=== PATIENT | male | born 1985 | race Two or more races ===

== ENCOUNTER 2024-02-26 22:04 | Emergency (ER) | payer SELFPAY ==
--- NOTE | 2024-02-26 22:00 | ECG_ITS ---
APPROVED REPORT Exam: Resting ECG HR:140 bpm ECG Measurements Heart Rate 140 AXES FL 128 P 58 QRSd 94 QRS 80 QT 327 T 36 QTc 408 Conclusion SINUS TACHYCARDIA, POSSIBLE ATRIAL FLUTTER NONSPECIFIC T-WAVE ABNORMALITY ABNORMAL RHYTHM ECG UNCONFIRMED REPORT Electronically signed by : Yohan Staton, 02/27/2024 23:11:34
[2024-02-26 22:04] VITALS: BP 186/93; PULSE 119; RESP 20; TEMP 36.8; O2SAT 99; BMI 28.1
[2024-02-26 22:10] VITALS: BP 129/66; PULSE 72; RESP 18; O2SAT 92
[2024-02-26 22:30] VITALS: BP 142/80; RESP 13
--- NOTE | 2024-02-26 22:34 | PC.NURSE ---
fingerstick 162 @ [id number]
[2024-02-26 23:00] VITALS: BP 150/87; RESP 19
--- NOTE | 2024-02-26 23:08 | HMH.EDGENADL ---
Discharge Plan Disposition Patient Disposition: Home, Self-Care Referrals Follow up/Referrals: Provider,Referral, [Primary Care Provider] - See instructions Activity Restrictions/Add. Instructions Additional Instructions/Restrictions: Please follow-up with your primary care provider. Please return to the emergency department if you develop any new or worsening symptoms or become concerned for your health. Clinical Impressions Clinical Impression: Syncope, Generalized weakness, Alcoholic intoxication, Acute hypokalemia Instructions Patient Instructions: DI for Altered Mental Status Print Language Print Language: Pashto Discharge ED Provider: Guicho Wilkinson General Adult HPI <Darin Staton MD - Last Filed: 02/26/24 23:15> General Chief complaint: Altered Mental Status Stated complaint: unresponsive Time Seen by Provider: 02/26/24 23:07 Mode of Arrival: EMS Source of Information: EMS Limitations: Language Barrier Description of Symptoms (Recalled from ER Triage Doc. by RN): Pt arrived via ems from home, was found by family passed out on stairs with beer in hand. pt is not alert, however arousable, also uncooperative with ems and staff. No health history discovered. Pashto int. used History of Present Illness HPI narrative: Patient is a 39-year-old with no past medical history who presents today after being found down by his son. History is obtained from the patient from his son and his colleagues at the bedside all through an boring machine operator double end. His colleagues states that they were having a libertarian for a coworker they were drinking some alcohol he was dancing and singing when his son found him on the second floor passed out and call for help EMS was called. The patient is awake answer questions to me right now and states he only has generalized weakness and denies any other complaints. Claims that he only had 2 beers. Denies any other drug use denies any other symptoms right now denies any chest pain shortness of breath or history of cardiopulmonary abnormalities is never passed out in the past. Related Data Allergies Allergy/AdvReac Type Severity Reaction Status Date / Time No Known Allergies Allergy Verified 02/26/24 22:11 PFSH <Darin Staton MD - Last Filed: 02/26/24 23:15> PFS Disclaimer: The information contained in this section may have been updated after the patient was seen, as this information can be updated by other users. Social History (Updated 02/26/24 @ 23:15 by Darin Staton MD) Smoking Status: Never smoker alcohol intake: never current occupational status: other Travel in the last 8 weeks: None <Darin Staton MD - Last Filed: 02/26/24 23:15> ROS Obtained: Yes All systems reviewed & no additional complaints except as documented Physical Exam <Darin Staton MD - Last Filed: 02/26/24 23:15> General General appearance: alert, lethargic and other (Smelled strongly of alcohol) Chest Chest inspection: Present normal inspection; Absent symmetric chest wall rise Respiratory Respiratory exam: Present normal lung sounds bilaterally; Absent respiratory distress Cardiovascular Cardiovascular exam: Present normal rhythm and tachycardia Neurological Exam Neurological exam: Present alert and oriented X3 Medical Decision Making <Darin Staton MD - Last Filed: 02/26/24 23:15> Medical Records Screening: Per USPSTF and CDC recommendations, given the prevalence of disease in our region, it is our hospital?s policy to screen for HIV and viral Hepatitis for all patients aged 18 and over and those with ongoing risk factors. Corey Inquiry Pt receiving controlled substance: No Vital Signs: 02/26/24 22:04 02/26/24 22:10 02/26/24 22:30 Temperature 98.3 F Temperature Source Oral Pulse Rate 72 Pulse Rate [Apical] 119 H Respiratory Rate 20 18 13 Blood Pressure 129/66 142/80 H Blood Pressure [Right Arm] 186/93 H Blood Pressure Mean [Right Arm] 124 02 Sat by Pulse Oximetry 99 92 L Oxygen Delivery Method Room Air Room Air 02/26/24 23:00 02/26/24 23:30 02/26/24 23:33 Temperature Temperature Source Pulse Rate 79 80 Pulse Rate [Apical] Respiratory Rate 19 17 18 Blood Pressure 150/87 H 129/66 129/66 Blood Pressure [Right Arm] Blood Pressure Mean [Right Arm] 02 Sat by Pulse Oximetry 90 L 99 Oxygen Delivery Method Room Air 02/27/24 00:00 02/27/24 00:30 02/27/24 01:00 Temperature Temperature Source Pulse Rate 70 90 66 Pulse Rate [Apical] Respiratory Rate 16 16 13 Blood Pressure 137/81 143/96 H 142/86 H Blood Pressure [Right Arm] Blood Pressure Mean [Right Arm] 02 Sat by Pulse Oximetry 98 100 99 Oxygen Delivery Method 02/27/24 01:55 Temperature 98 F Temperature Source Tympanic Pulse Rate 68 Pulse Rate [Apical] Respiratory Rate 14 Blood Pressure 142/86 H Blood Pressure [Right Arm] Blood Pressure Mean [Right Arm] 02 Sat by Pulse Oximetry Oxygen Delivery Method Room Air Lab Data Lab Results 02/26/24 22:07: WBC 7.5, RBC 5.15, Hgb 15.6, Hct 46.4, MCV 90.0, MCH 30.3, MCHC 33.6, RDW 13.1, Plt Count 317, MPV 8.7, Neut % (Auto) 49.2, Lymph % (Auto) 42.4, [place] % (Auto) 6.5, Eos % (Auto) 1.1, Baso % (Auto) 0.7, Neut # (Auto) 3.7, Lymph # (Auto) 3.2, [place] # (Auto) 0.5, Eos # (Auto) 0.1, Baso # (Auto) 0.1, Sodium 141, Potassium 2.9 L*, Chloride 107, Carbon Dioxide 20 L, Anion Gap 16.9 H, BUN 10, Creatinine 0.90, Estimated Creat Clear 126, Estimated GFR 93, Est GFR ( Amer) 113, Glucose 169 H, Calcium 9.2, Total Bilirubin 0.3, AST 48, ALT 40, Alkaline Phosphatase 68, Troponin I < 0.01, Total Protein 7.8, Albumin 4.6, Globulin 3.2, Albumin/Globulin Ratio 1.4, Plasma/Serum Alcohol 152 H 02/26/24 22:07 02/26/24 22:07 Orders (Tests/Meds): ED MEDICATIONS Discontinued Medications Generic Name Dose Route Start Last Admin Trade Name Freq PRN Reason Stop Dose Admin Lactated Ringer's 1,000 mls @ 999 mls/hr 02/26/24 23:15 02/26/24 23:17 Lactated Ringer's 1000 Ml Bag IV 02/27/24 00:15 999 mls/hr .Q1H1M NANCY Administration Potassium Chloride/Water 100 mls @ 100 mls/hr 02/26/24 23:30 02/27/24 00:34 Potassium Chloride 10meq/100ml Ivpb IV 02/27/24 02:29 100 mls/hr Q1H NANCY Administration Potassium Chloride 40 meq 02/26/24 23:28 02/26/24 23:40 Potassium Chloride 10meq Tablet.Er PO 02/26/24 23:29 Not Given ONCE ONE Potassium Chloride 40 meq 02/26/24 23:40 02/26/24 23:40 Potassium Chloride 20meq Tab PO 02/26/24 23:41 40 meq ONCE ONE Administration Potassium Chloride 40 meq 02/27/24 01:35 02/27/24 01:37 Potassium Chloride 20meq Tab PO 02/27/24 01:36 40 meq ONCE ONE Administration ORDERS Category Date Time Status CBC w/Auto Diff [Complete Blood Count Auto Diff] Stat Lab 02/26/24 22:07 Completed CMP [Comprehensive Metabolic Panel] Stat Lab 02/26/24 22:07 Completed Ethanol [Ethyl Alcohol] Stat Lab 02/26/24 22:07 Completed Trop I [Troponin I] Stat Lab 02/26/24 22:07 Completed Medical Decision Narrative: 39-year-old male who presents today with above history and physical smelled very strongly of alcohol sinus tachycardia was generalized malaise and weakness he was very noncooperative with my evaluation and exam but he is able to answer questions appropriately and denies any other somatic complaints at the moment injuries or significant past medical history. I suspect this is all secondary most likely alcohol intoxication. EKG shows sinus tachycardia IV fluids will be administered tox workup initiated in addition to basic blood work no evidence of trauma no imaging indicated. Will allow him to metabolize ED observation order will be placed at 11:15 PM. Care will be transitioned to Dr. Hiro Wilkinson at this time. <Guicho Wilkinson MD - Last Filed: 02/27/24 03:20> Vital Signs: 02/26/24 22:04 02/26/24 22:10 02/26/24 22:30 Temperature 98.3 F Temperature Source Oral Pulse Rate 72 Pulse Rate [Apical] 119 H Respiratory Rate 20 18 13 Blood Pressure 129/66 142/80 H Blood Pressure [Right Arm] 186/93 H Blood Pressure Mean [Right Arm] 124 02 Sat by Pulse Oximetry 99 92 L Oxygen Delivery Method Room Air Room Air 02/26/24 23:00 02/26/24 23:30 02/26/24 23:33 Temperature Temperature Source Pulse Rate 79 80 Pulse Rate [Apical] Respiratory Rate 19 17 18 Blood Pressure 150/87 H 129/66 129/66 Blood Pressure [Right Arm] Blood Pressure Mean [Right Arm] 02 Sat by Pulse Oximetry 90 L 99 Oxygen Delivery Method Room Air 02/27/24 00:00 02/27/24 00:30 02/27/24 01:00 Temperature Temperature Source Pulse Rate 70 90 66 Pulse Rate [Apical] Respiratory Rate 16 16 13 Blood Pressure 137/81 143/96 H 142/86 H Blood Pressure [Right Arm] Blood Pressure Mean [Right Arm] 02 Sat by Pulse Oximetry 98 100 99 Oxygen Delivery Method 02/27/24 01:55 Temperature 98 F Temperature Source Tympanic Pulse Rate 68 Pulse Rate [Apical] Respiratory Rate 14 Blood Pressure 142/86 H Blood Pressure [Right Arm] Blood Pressure Mean [Right Arm] 02 Sat by Pulse Oximetry Oxygen Delivery Method Room Air Lab Data Lab Results 02/26/24 22:07: WBC 7.5, RBC 5.15, Hgb 15.6, Hct 46.4, MCV 90.0, MCH 30.3, MCHC 33.6, RDW 13.1, Plt Count 317, MPV 8.7, Neut % (Auto) 49.2, Lymph % (Auto) 42.4, [place] % (Auto) 6.5, Eos % (Auto) 1.1, Baso % (Auto) 0.7, Neut # (Auto) 3.7, Lymph # (Auto) 3.2, [place] # (Auto) 0.5, Eos # (Auto) 0.1, Baso # (Auto) 0.1, Sodium 141, Potassium 2.9 L*, Chloride 107, Carbon Dioxide 20 L, Anion Gap 16.9 H, BUN 10, Creatinine 0.90, Estimated Creat Clear 126, Estimated GFR 93, Est GFR ( Amer) 113, Glucose 169 H, Calcium 9.2, Total Bilirubin 0.3, AST 48, ALT 40, Alkaline Phosphatase 68, Troponin I < 0.01, Total Protein 7.8, Albumin 4.6, Globulin 3.2, Albumin/Globulin Ratio 1.4, Plasma/Serum Alcohol 152 H Orders (Tests/Meds): ED MEDICATIONS Discontinued Medications Generic Name Dose Route Start Last Admin Trade Name Freq PRN Reason Stop Dose Admin Lactated Ringer's 1,000 mls @ 999 mls/hr 02/26/24 23:15 02/26/24 23:17 Lactated Ringer's 1000 Ml Bag IV 02/27/24 00:15 999 mls/hr .Q1H1M NANCY Administration Potassium Chloride/Water 100 mls @ 100 mls/hr 02/26/24 23:30 02/27/24 00:34 Potassium Chloride 10meq/100ml Ivpb IV 02/27/24 02:29 100 mls/hr Q1H NANCY Administration Potassium Chloride 40 meq 02/26/24 23:28 02/26/24 23:40 Potassium Chloride 10meq Tablet.Er PO 02/26/24 23:29 Not Given ONCE ONE Potassium Chloride 40 meq 02/26/24 23:40 02/26/24 23:40 Potassium Chloride 20meq Tab PO 02/26/24 23:41 40 meq ONCE ONE Administration Potassium Chloride 40 meq 02/27/24 01:35 02/27/24 01:37 Potassium Chloride 20meq Tab PO 02/27/24 01:36 40 meq ONCE ONE Administration ORDERS Category Date Time Status CBC w/Auto Diff [Complete Blood Count Auto Diff] Stat Lab 02/26/24 22:07 Completed CMP [Comprehensive Metabolic Panel] Stat Lab 02/26/24 22:07 Completed Ethanol [Ethyl Alcohol] Stat Lab 02/26/24 22:07 Completed Trop I [Troponin I] Stat Lab 02/26/24 22:07 Completed Medical Decision Narrative: 39-year-old male who presents today with above history and physical smelled very strongly of alcohol sinus tachycardia was generalized malaise and weakness he was very noncooperative with my evaluation and exam but he is able to answer questions appropriately and denies any other somatic complaints at the moment injuries or significant past medical history. I suspect this is all secondary most likely alcohol intoxication. EKG shows sinus tachycardia IV fluids will be administered tox workup initiated in addition to basic blood work no evidence of trauma no imaging indicated. Will allow him to metabolize ED observation order will be placed at 11:15 PM. Care will be transitioned to Dr. Hiro Wilkinson at this time. Minh SULLIVAN: I assumed care of the patient at the time of handoff from the prior provider. On reassessment patient reports symptomatic improvement. Laboratories also hypokalemia potassium 2.9, alcohol level also elevated at 152. Patient was initiated on 1 L fluid bolus, 40 p.o. potassium and 30 IV potassium. We continued to monitor the patient. After fluid resuscitation and a few hours of observation patient reports that he feels much better. He was able to get up and walk around without difficulty. Given this patient was deemed appropriate for discharge with outpatient management. Interactive discussion was had with patient regarding his presentation. We provided him with additional dose of p.o. potassium to take at home in the morning. I encouraged him to follow-up with his PCP for reassessment. He was discharged in stable condition with return precautions. Critical Care <Darin Staton MD - Last Filed: 02/26/24 23:15> Critical Care Time Critical Care Time: No
[2024-02-26] MEDS: LACTATED RINGERS 1000ML 1,000 ML 999 ML IV (23:17)
[2024-02-26 23:18] LABS: Basophils # 0.1 K/mm3 (0-0.2); Basophils % 0.7 % (0.1-2.0); Eosinophils # 0.1 K/mm3 (0.0-0.4); Eosinophils % 1.1 % (0.1-12.0); Hematocrit 46.4 % (42.0-52.0); Hemoglobin 15.6 g/dL (14.1-18.0); Lymphocytes # 3.2 K/mm3 (0.7-4.5); Lymphocytes % 42.4 % (10-50); Mean Corpuscular HGB Conc 33.6 g/dL (31.8-35.4); Mean Corpuscular Hemoglobin 30.3 pg (27.0-31.2); Mean Platelet Volume 8.7 fl (7.4-10.4); Monocytes # 0.5 K/mm3 (0.1-1.0); Monocytes % 6.5 % (1.7-9.3); Neutrophils # 3.7 K/mm3 (1.8-7.8); Neutrophils % 49.2 % (37.0-80.0); Platelet Count 317 K/mm3 (142-424); Red Blood Count 5.15 M/mm3 (4.60-6.20); Red Cell Distribution Width 13.1 % (11.5-17.5); White Blood Count 7.5 K/mm3 (4.8-10.8)
[2024-02-26 23:23] LABS: Alanine Aminotransferase 40 U/L (12-78); Albumin Level 4.6 g/dl (3.5-5.0); Albumin/Globulin Ratio 1.4 (1.1-1.8); Alkaline Phosphatase 68 U/L (38-126); Anion Gap 16.9 mEq/L (5-15); Aspartate Amino Transferase 48 U/L (17-59); Bilirubin,Total 0.3 mg/dl (0.2-1.3); Blood Urea Nitrogen 10 mg/dl (9-20); Calcium 9.2 mg/dl (8.4-10.2); Carbon Dioxide 20 mmol/L (22.0-30.0); Chloride 107 mmol/L (98-107); Creatinine Clearance Estimated 126 mL/min (50-200); Estimated Glomerular Filt Rate 93 ml/min (>60); Ethyl Alcohol 152 mg/dl (0-10); GFR (African American) 113 ML/MIN (>60); Globulin 3.2 g/dL (1.3-3.2); Glucose 169 mg/dl (74-100); Sodium 141 mmol/L (136-145); Total Protein,Serum 7.8 g/dl (6.3-8.2)
[2024-02-26 23:26] LABS: Potassium 2.9 mmoL/L (3.5-5.1)
[2024-02-26 23:30] VITALS: BP 129/66; PULSE 79; RESP 17; O2SAT 90
[2024-02-26 23:33] VITALS: BP 129/66; PULSE 80; RESP 18; O2SAT 99
[2024-02-26 23:35] LABS: Troponin I < 0.01 ng/ml (0.00-0.034)
[2024-02-26] MEDS: KCl 10mEq/100ml 100 ML 100 MEQ IV (23:39)
[2024-02-26] MEDS: POTASSIUM CHLORIDE 20MEQ TAB 40 MEQ PO (23:40)
[2024-02-27] VITALS: BP 137/81; PULSE 70; RESP 16; O2SAT 98
[2024-02-27 00:30] VITALS: BP 143/96; PULSE 90; RESP 16; O2SAT 100
[2024-02-27] MEDS: KCl 10mEq/100ml 100 ML 100 MEQ IV (00:34)
[2024-02-27 01:00] VITALS: BP 142/86; PULSE 66; RESP 13; O2SAT 99
[2024-02-27] MEDS: POTASSIUM CHLORIDE 20MEQ TAB 40 MEQ PO (01:37)
--- NOTE | 2024-02-27 01:51 | PC.NURSE ---
Prior to d/c, verbal request to ambulate pt before dc. pt able to ambulate however reports some weakness. pt given po fluids and tolerated. Pt able to ambulate now with steady
[2024-02-27 01:55] VITALS: BP 142/86; PULSE 68; RESP 14; TEMP 36.6; O2SAT 99
== END 2024-02-27 01:45 | disposition home or self-care (01) ==
PROVIDERS: Student in an Organized Health Care Education/Training Program; Emergency Provider Emergency Medicine
DX: E87.6 Hypokalemia (principal); F10.929 Alcohol use, unspecified with intoxication, unspecified; R41.82 Altered mental status, unspecified; R55 Syncope and collapse; R53.1 Weakness; R53.81 Other malaise; Y90.6 Blood alcohol level of 120-199 mg/100 ml
CPT/HCPCS: 80053; 80320; 84484; 85025; 93005; 96361; 96365; 99284; G0480; J3480; J7120